=== PATIENT | female | born 1995 | race African-American/Black ===

== ENCOUNTER 2018-06-30 18:45 | Emergency (ER) | payer OTHER ==
[~2018-06-30] VITALS: Ht 160 cm; Wt 56.2 kg
[2018-06-30 19:23] LABS: URINE BILIRUBIN NEGATIVE (Negative); URINE BLOOD NEGATIVE (Negative); URINE CLARITY CLEAR; URINE COLOR YELLOW; URINE GLUCOSE-RANDOM* NEGATIVE (Negative); URINE KETONES NEGATIVE (Negative); URINE LEUKOCYTES-REFLEX NEGATIVE (Negative); URINE NITRITE-REFLEX NEGATIVE (Negative); URINE PROTEIN (DIPSTICK) NEGATIVE (Negative); URINE UROBILINOGEN 0.2 E.U./dl (0.2-1.0)
[2018-06-30 20:18] LABS: CALCIUM 9.6 mg/dL (8.5-10.1); CREATININE 0.7 mg/dL (0.6-1.0)
[2018-06-30 20:24] LABS: ALBUMIN 3.8 g/dL (3.4-5.0); TOTAL BILIRUBIN 0.3 mg/dL (<0.1-1.0); TOTAL PROTEIN 7.9 g/dL (6.4-8.2)
[2018-06-30 20:26] LABS: HEMATOCRIT 43.9 % (37.0-47.0); HEMOGLOBIN 15.6 gm/dL (12.0-15.0); MCH 30.5 pg (26.0-34.0); MCHC 35.7 g/dL (28.0-37.0); MCV 85.5 fL (80.0-100.0); PLATELET COUNT 299 thou/uL (150-400); RBC 5.13 mil/uL (4.20-5.00); RDW 13.3 % (10.5-14.5); WBC 10.6 thou/uL (4.0-11.0)
[2018-06-30] MEDS ORDERED: ZANTAC 150MG T150 MG PO (20:33)
[2018-06-30 20:42] LABS: ANISOCYTOSIS 1+; POLYCHROMASIA OCCASIONAL
[2018-06-30 20:45] VITALS: BP 131/85
== END 2018-06-30 20:45 | disposition home or self-care (01) ==
LOC: ER 18:45
PROVIDERS: Nurse Practitioner Family
DX: R10.13 Epigastric pain (principal)